=== PATIENT | male | born 1940 | race Caucasian/White ===

== ENCOUNTER 2020-04-30 06:41 | Day surgery (SDC) | payer MEDICARE, SELFPAY ==
[2020-04-04 08:19] VITALS: BMI 24.0
[2020-04-30] VITALS (7 sets, daily range): BP systolic 94–115; BP diastolic 55–73; PULSE 47–99; RESP 14–16; TEMP 36.1–36.7; O2SAT 97–100; BMI 23.1
[2020-04-30 07:16] LABS: Bedside Glucose 110 mg/dL (70-110)
[2020-04-30] MEDS: Lactated Ringers 1,000 ML 100 ML IV (07:24)
--- NOTE | 2020-04-30 07:31 | PCM.HP.BLA ---
Problem List (1) Family history of malignant neoplasm of colon in father Status: Acute (2) Personal history of colonic polyps Status: Acute History and Physical Date of Admission: 04/30/20 Intake Visit Reasons: CSCOPE Chief Complaint: discuss c-scope Construction Analyst Required: No Is patient in pain?: No Allergies aspirin Allergy (Mild, Verified 04/04/20 08:21) Unknown Medications lisinopril 5 mg tablet 5 mg PO DAILY 04/04/20 [History Confirmed 04/04/20] metformin 500 mg tablet 500 mg PO DAILY 04/04/20 [History Confirmed 04/04/20] rosuvastatin 5 mg tablet 5 mg PO DAILY 04/04/20 [History Confirmed 04/04/20] tamsulosin 0.4 mg capsule 0.4 mg PO DAILY 04/04/20 [History Confirmed 04/04/20] [facility] Medical History BPH (benign prostatic hyperplasia) (Acute) Diabetes (Acute) High cholesterol (Acute) HTN (hypertension) (Chronic) Social History (Updated 04/04/20 @ 08:[address] Shabbir Cortez MD) Smoking Status: Never smoker HPI HPI HPI: EUGENIE KNIGHT, is a 79 M who presents to the office today for surgical consultation regarding a colonoscopy. The patient is referred by Dr. Tanner Norman and a written copy my surgical consult recommendations will return to him. This is a pleasant 79-year-old [facility] gentleman. November 15, 2015 I performed a colonoscopy with multiple polypectomy for him. He had a tortuous colon. He had a total of 8 polyps at that time. Combination of tubular adenomas and hyperplastic polyps. The patient did have a follow-up colonoscopy January 12, 2017. On that examination I did not detect additional polyps. The patient does have a family history with his father having had colon cancer. He currently denies bright red blood per rectum or melena. No abdominal pain. No weight loss. He does have a chronic long-term cough. HPI HPI HPI: EUGENIE KNIGHT, is a 79 M who presents to the office today for ROS General General: No weight change, appetite, fatigue, colon cancer, breast cancer or weakness HEENT HEENT: No difficulty swallowing, eye injury, eye surgery, swollen glands or hoarseness Endo Endocrine: Yes diabetes mellitus; no thyroid disease, thyroid cancer, Hair loss, heat intolerance or cold intolerance Skin Skin: No rash or changing moles Breast Breast: No left breast lump, right breast lump, nipple discharge, breast pain, abnormal mammogram, abnormal US or breast enlargement Musc Musculoskeletal: No back problems, arthritis, rheumatoid arthritis, gout or joint pain Cardio Cardiovascular: Yes high blood pressure; no murmur, pacemaker, heart disease, atrial fibrillation, heart attack, heart stent, palpitations, shortness of breat with exertion or chest pain Psych Psychiatric: No depression, anxiety or hearing voices Resp Respiratory: No shortness of breath, No sleep apnea, Yes cough, No COPD, No asthma, No emphysema, No wheezing Gastro Gastrointestinal: No abdominal pain, No nausea or vomiting, No diarrhea, No constipation, No blood in stool, No acid reflux, No hemorrhoids, No ulcers, No gallbladder problem, No black,tarry stools Mike Hematologic: No blood thinners, No blood disorders, No bleeding, No anemia, No blood clots Neuro Neurologic: No system reviewed and no additional complaints, except as docu, No as per HPI, No abnormal walking, No abnormal hearing, No abnormal movements, No abnormal speech, No behavioral changes, No burning sensations, No confusion, No seizure-like activity, No unsteadiness, No dizziness, No localized weakness, No frequent falls, No headache(s), No lack of coordination, No loss of vision, No memory loss, No numbness, No other visual disturbances, No radiating pain, No restless legs, No sensory deficit, No fainting, No tingling, No tremor(s), No weakness, No other Exam Const General: cooperative, healthy appearing, comfortable, no acute distress Nutritional Appearance: average body habitus Orientation: alert, awake [facility] Head: normal to inspection Eyes General: appearance normal, both eyes and all related structures Chest Breast Palpation: No nipple discharge Resp Effort & Inspection: normal respiratory effort Auscultation: clear to auscultation bilaterally Cardio Rate: regular rate Rhythm: regular rhythm Heart Sounds: no murmurs GI Inspection: normal to inspection Palpation: soft, no hepatosplenomegaly Auscultation: normal bowel sounds Musc Cervical Spine: normal cervical lordosis Neuro Cognition: normal cognition Extrem General: no calf tenderness Psych Affect: normal affect Assessment & Plan Problems 1. Personal history of colonic polyps Z86.010 2. Family history of malignant neoplasm of colon in father Z80.0 Plan I recommended the patient a colonoscopy with possible biopsy or polypectomy is indicated. He is aware of the technique, benefit, risk, alternatives. He had a previous history of multiple colon polyps. He has history of a tortuous colon. He has a higher risk nature in addition secondary to family history with his father having colon cancer. He has had an opportunity to ask and have questions answered. He is aware of Covid-19 pandemic. He is aware that the [facility] is currently reporting a low local incidence. We will schedule and proceed at his discretion. Copy: Dr. Tanner Cortez M.D., F.A.C.S. Coding Level of Care Code 83303 Diagnoses Personal history of colonic polyps Z86.010 Family history of malignant neoplasm of colon in father Z80.0 I have re-examined the patient. There are no clinical changes since date of exam. Procedure Criteria Procedure Type: Elective COVID Risk Discussion: The surgeon/proceduralist and patient have discussed in detail the risk of exposure to and/or potential harm posed by the COVID-19 virus with having a surgery/procedure at this time versus the risk of delaying the surgery/procedure. It is not possible to know either the risk of delaying the surgery or procedure or chance of getting an infection with perfect accuracy, but a joint decision was made between the patient and the surgeon/proceduralist to proceed at this time with the scheduled surgery/procedure as indicated on the consent form.
--- NOTE | 2020-04-30 07:45 | COLBX_PTH ---
PATIENT: EUGENIE KNIGHT LOC: [facility] U#:[id number] AGE/SX: 79/M ROOM: RE04/30/[address]: Dr. Shabbir Cortez MD : 1940 BED: DIS: 04/30/2020 SPEC #: [id number] RECD: 04/30/20 10:28 STATUS: CELESTE TIMI #: [id number] DANIKA: 04/30/20 07:[address]: Shabbir Cortez DEPT: SURGICAL PATHOLOGY RECD BY: Jimena Parikh ENTERED: 04/30/20 12:12 SP TYPE: COLON BX OTHR DR: MD Dr. Ian Melendez MD Tissues: A - Gastric mucous membrane B - SPLENIC FLEXURE C - Descending colon Procedures: Surgery Specimen Level IV HEADER OPERATION: Colonoscopy (MAC) PRE-OP DIAGNOSIS: History colonic polyps TISSUE SUBMITTED: A - Hepatic flexure polyp, B - Splenic flexure polyp, C - Descending polyp biopsy MICROSCOPIC DIAGNOSIS A. Colonic polyp at hepatic flexure, biopsy: Tubular adenoma. Fecal debris. B. Colonic polyp at splenic flexure, biopsy: Polypoid fragment of benign colonic mucosa. See comment. C. Descending colon polyp, biopsy: Tubular adenoma. AM:willie 05/01/20 COMMENT B. Neither hyperplastic nor adenomatous change is seen. MICROSCOPIC DESCRIPTION Slides are reviewed. GROSS DESCRIPTION A - Received in fixative is one container labeled with the patient's name and designated hepatic flexure polyp. The specimen consists of multiple irregular fragments of light barlow soft tissue and fecal debris that in aggregate measure 3 x 0.6 x 0.1 cm. The specimen is totally submitted in one cassette. B - Received in fixative is one container labeled with the patient's name and designated splenic flexure polyp. The specimen consists of multiple irregular fragments of light barlow soft tissue that in aggregate measure 0.5 x 0.5 x 0.1 cm. The specimen is totally submitted in one cassette. C - Received in fixative is one container labeled with the patient's name and designated descending colon polyp. The specimen consists of one irregular fragment of light barlow soft tissue that measures 0.5 x 0.5 x 0.1 cm. The specimen is totally submitted in one cassette. / AM:willie 04/30/20 TC:5 CPT: 96567 x3
--- NOTE | 2020-04-30 08:22 | OP.COLON_ITS ---
Patient Name: Harshil Barahona Procedure Date: 04/30/2020 7:32 AM Date of : 1940 Age: 79 Procedure: Colonoscopy Indications: High risk colon cancer surveillance: Personal history of colonic polyps Providers: Shabbir Cortez MD Referring MD: Ian Norman Medicines: See the Anesthesia note for documentation of the administered medications Patient Profile: Last Colonoscopy: December 2016. Complications: No immediate complications. Procedure: Pre-Anesthesia Assessment: - Prior to the procedure, a History and Physical was performed, and patient medications and allergies were reviewed. The patient's tolerance of previous anesthesia was also reviewed. The risks and benefits of the procedure and the sedation options and risks were discussed with the patient. All questions were answered, and informed consent was obtained. Prior Anticoagulants: The patient has taken no previous anticoagulant or antiplatelet agents. ASA Grade Assessment: II - A patient with mild systemic disease. After reviewing the risks and benefits, the patient was deemed in satisfactory condition to undergo the procedure. After I obtained informed consent, the scope was passed under direct vision. Throughout the procedure, the patient's blood pressure, pulse, and oxygen saturations were monitored continuously. The colonoscope was introduced through the anus and advanced to the cecum, identified by appendiceal orifice and ileocecal valve. The colonoscopy was performed with difficulty due to a tortuous colon. Successful completion of the procedure was aided by applying abdominal pressure. The patient tolerated the procedure well. The quality of the bowel preparation was good. The ileocecal valve and the appendiceal orifice were photographed. Scope In: 7:43:49 AM Scope Withdrawal Time 0 hours 19 minutes 42 seconds Scope Out: 8:14:37 AM Total Procedure Duration Time 0 hours 30 minutes 48 seconds Findings: Hemorrhoids were found on perianal exam. The digital rectal exam was normal. Pertinent negatives include normal prostate (size, shape, and consistency). A 7 mm polyp was found in the hepatic flexure. The polyp was sessile. The polyp was removed with a hot snare. Resection and retrieval were complete. A 5 mm polyp was found in the splenic flexure. The polyp was sessile. The polyp was removed with a hot snare. Resection and retrieval were complete. A 5 mm polyp was found in the descending colon. The polyp was sessile. The polyp was removed with a cold biopsy forceps. Resection and retrieval were complete. A 3 mm polyp was found in the sigmoid colon. The polyp was sessile. The polyp was removed with a hot snare. Resection and retrieval were complete. Scattered diverticula were found in the sigmoid colon. The sigmoid colon was significantly tortuous. Impression: - Hemorrhoids found on perianal exam. - One 7 mm polyp at the hepatic flexure, removed with a hot snare. Resected and retrieved. - One 5 mm polyp at the splenic flexure, removed with a hot snare. Resected and retrieved. - One 5 mm polyp in the descending colon, removed with a cold biopsy forceps. Resected and retrieved. - One 3 mm polyp in the sigmoid colon, removed with a hot snare. Resected and vaporized, no residual specimen - Diverticulosis in the sigmoid colon. - Tortuous colon. Recommendation: - Discharge patient to home. - Resume previous diet. - Continue present medications. - Repeat colonoscopy in 3 years for surveillance based on pathology results. - Telephone my office for pathology results in 1 week. Procedure Code(s): --- Professional --- 43319, Colonoscopy, flexible; with removal of tumor(s), polyp(s), or other lesion(s) by snare technique 60631, 59, Colonoscopy, flexible; with biopsy, single or multiple Diagnosis Code(s): --- Professional --- Z86.010, Personal history of colonic polyps K64.9, Unspecified hemorrhoids D12.3, Benign neoplasm of transverse colon (hepatic flexure or splenic flexure) D12.4, Benign neoplasm of descending colon D12.5, Benign neoplasm of sigmoid colon K57.30, Diverticulosis of large intestine without perforation or abscess without bleeding Q43.8, Other specified congenital malformations of intestine CPT copyright 2017 [employer]. All rights reserved. The codes documented in this report are preliminary and upon certified medical records coder review may be revised to meet current compliance requirements. Shabbir Cortez MD 04/30/2020 8:21:19 AM This report has been signed electronically. Number of Addenda: 0 Note Initiated On: 04/30/2020 7:32 AM
--- NOTE | 2020-04-30 08:22 | OP.CCLET_ITS ---
04/30/2020 Ian Norman Md Re : Colonoscopy procedure for Harshil Barahona Dear Dr. Norman This procedure was performed on Thursday, April 30, 2020. My impressions and recommendations are as follows: Impressions : - Hemorrhoids found on perianal exam. - One 7 mm polyp at the hepatic flexure, removed with a hot snare. Resected and retrieved. - One 5 mm polyp at the splenic flexure, removed with a hot snare. Resected and retrieved. - One 5 mm polyp in the descending colon, removed with a cold biopsy forceps. Resected and retrieved. - One 3 mm polyp in the sigmoid colon, removed with a hot snare. Resected and vaporized, no residual specimen - Diverticulosis in the sigmoid colon. - Tortuous colon. Recommendations : - Discharge patient to home. - Resume previous diet. - Continue present medications. - Repeat colonoscopy in 3 years for surveillance based on pathology results. - Telephone my office for pathology results in 1 week. My findings are described in the full procedure note, which is enclosed. If I can be of further assistance, please feel free to contact me at Doctor phone number(s): Work: . Sincerely, Shabbir Cortez MD 04/30/2020 8:21:19 AM This report has been signed electronically.
== END 2020-04-30 09:00 | disposition home or self-care (01) ==
LOC: EN 06:41 → AC 06:45
PROVIDERS: Anesthesiology; PCP Family Medicine; Referring Provider Family Medicine; Visit Provider Surgery
PROC: 0DJD8ZZ Inspection of Lower Intestinal Tract, Via Natural or Artificial Opening Endoscopic (ICD-10-PCS; CPT 45378; principal; 2020-04-30 07:40)
DX: Z12.11 Encounter for screening for malignant neoplasm of colon (principal); Z87.19 Personal history of other diseases of the digestive system; K64.9 Unspecified hemorrhoids; D12.3 Benign neoplasm of transverse colon; D12.4 Benign neoplasm of descending colon; D12.5 Benign neoplasm of sigmoid colon; Q43.8 Other specified congenital malformations of intestine; Z79.84 Long term (current) use of oral hypoglycemic drugs; Z79.899 Other long term (current) drug therapy; E11.9 Type 2 diabetes mellitus without complications; I10 Essential (primary) hypertension; E78.00 Pure hypercholesterolemia, unspecified; N40.0 Benign prostatic hyperplasia without lower urinary tract symptoms; Z80.0 Family history of malignant neoplasm of digestive organs; R05 Cough
CPT/HCPCS: 45380; 45385; 82962; 87635; 88305; C9803; J7120; U0003

== ENCOUNTER 2022-01-08 09:03 | Emergency (ER) | payer MEDICARE, SELFPAY ==
[2022-01-08 09:04] VITALS: BP 170/69; PULSE 63; RESP 18; TEMP 36.6; O2SAT 97; BMI 24.3
--- NOTE | 2022-01-08 09:42 | CT_ITS ---
STUDY: CTA CHEST REASON FOR EXAM: Male, 81 years old. Questionable aortic dissection seen on the cardiac echo.. RADIATION DOSAGE (If Supplied By Facility): CTDIvol = ( 13.83 ) mGy, DLP = ( 536.52 ) mGycm TECHNIQUE: The examination was performed with the intravenous administration of IV 100mL Isovue-370. Post-processing of the angiographic images was performed, with multiplanar reformation and 3D reconstruction. Individualized dose optimization techniques were used for this CT. COMPARISON: None. FINDINGS: Normal enhancement of the main pulmonary artery and right and left pulmonary arteries. Normal enhancement of the bilateral peripheral pulmonary arteries. There is no demonstrated pulmonary embolism. There is aneurysmal dilatation of the ascending aorta. The transverse diameter of the ascending aorta measures 44.9 mm''s. There is no demonstrated aortic dissection. There are calcifications of the coronary arteries. There are visualized mediastinal lymph nodes, which are within normal size limits, and with normal morphology. Normal hilar regions. Normal visualized trachea and bronchi. The lungs are well expanded. Mild degree of increased markings at the lung bases suggestive of mild scarring. Normal pleura. Normal chest wall structures. There are degenerative changes of thoracic spine. There is a 1.5 cm x 1.7 cm cyst in the left lobe of the liver. 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 No evidence of dissection. Electronically Signed: Rajendra Navarrete MD at 11:36 EDT ,
--- NOTE | 2022-01-08 09:42 | EKG12_ITS ---
Test Reason : CHEST OTHER Blood Pressure : / mmHG Vent. Rate : 052 BPM Atrial Rate : 052 BPM P-R Int : 166 ms QRS Dur : 112 ms QT Int : 446 ms P-R-T Axes : 067 022 -22 degrees QTc Int : 414 ms Sinus bradycardia Nonspecific ST abnormality Septal FL, age undetermined, cannot be excluded Abnormal ECG Confirmed by YANN COLON, ARISTIDES ([id number]), editor department ELISA GUILLEN ([id number]) on 01/12/2022 7:23:33 AM Referred By: LUIS Confirmed By:ARISTIDES LERNER MD
--- NOTE | 2022-01-08 09:44 | EX.ED.DYSGE1 ---
HPI History of Present Illness Chief Complaint: Chest Other Informant: patient Narrative Narrative: Asymptomatic patient who had a routine stress test that was abnormal, he had an echocardiogram this morning as a follow-up to this, the centrifugal chiller technician called PCP concerned that it shows a 5.4 cm aneurysm in the thoracic aorta with findings consistent with a dissection. Therefore he was sent to the emergency department for further evaluation. Patient has had no chest discomfort, shortness of breath, syncope, or recent illness and he states he feels fine right now, he is just here because of some abnormal test. [facility] Medical History Arthritis BPH (benign prostatic hyperplasia) Diabetes Dietary restriction Family history of malignant neoplasm of colon in father High cholesterol History of echocardiogram History of irregular heartbeat History of stress test HTN (hypertension) Leg cramps Non-smoker Personal history of colonic polyps Shortness of breath on exertion Syncope Wears glasses Wears hearing aid Home Medications metformin 500 mg tablet 500 mg PO BID 04/04/20 [History Last Taken Unknown] rosuvastatin 5 mg tablet 5 mg PO DAILY 04/04/20 [History Last Taken Unknown] omega-3 fatty acids-fish oil 1 ea PO DAILY 04/23/20 [History Last Taken Unknown] vitamin B complex 1 ea PO DAILY 04/23/20 [History Last Taken Unknown] cholecalciferol (vitamin D3) 25 mcg (1,000 unit) tablet 2,000 unit PO DAILY tab 06/19/21 [History Last Taken Unknown] losartan 25 mg tablet 25 mg PO DAILY 06/19/21 [History Last Taken Unknown] tamsulosin 0.4 mg capsule 0.4 mg PO QHS 06/19/21 [History Last Taken Unknown] Allergy/AdvReac Type Severity Reaction Status Date / Time aspirin Allergy Mild Unknown Verified 01/08/22 09:06 pravastatin Allergy angioedema Verified 01/08/22 09:06 atorvastatin [From Lipitor] AdvReac mental Verified 01/08/22 09:06 status change lovastatin AdvReac muscle Verified 01/08/22 09:06 aches Family History (Updated 06/19/21 @ 08:41 by Tamanna Wednesday) Father Colon cancer Brother Diabetes Sister Diabetes Surgical History Hx of colonoscopy with polypectomy Hx of detached retina repair Hx of inguinal hernia repair Hx of thumb surgery Hx of tonsillectomy Social History Smoking Status: Never smoker alcohol intake: never substance use type: does not use ROS ROS ED Constitutional Constitutional ED: Denies chills or fever(s) Eyes Eyes: Denies change in vision or diplopia ENT ENT ED: Denies rhinorrhea or sore throat Cardiovascular Cardiovascular: Denies chest pain or palpitations Respiratory/Chest Respiratory/Chest: Denies cough or dyspnea Gastrointestinal Gastrointestinal: Denies abdominal pain, diarrhea, nausea or vomiting Genitourinary Genitourinary ED: Denies dysuria or hematuria Musculoskeletal Musculoskeletal: Denies back pain or neck pain Integumentary Denies abscess or rash Neurologic Neurologic: Denies headache(s), paresthesias or weakness Psychiatric Psychiatric: Denies anxiety or suicidal thoughts EXAM Physical Exam Const Vital Signs: 01/08/22 09:04 01/08/22 09:59 01/08/22 10:00 Temperature 98 F Temperature Source Temporal Pulse Rate 63 Respiratory Rate 18 Respiratory Effort Normal Non-Labored Respiratory Pattern Normal Blood Pressure 170/69 H Blood Pressure Mean 102 Pulse Ox 97 99 Oxygen Delivery Method Room Air Room Air Positive well nourished and well developed General Appearance ED: well developed and NAD HEENT Reports moist mucous membranes normocephalic and atraumatic Eyes PERRL and EOMs intact bilaterally Neck full ROM and supple Resp normal respiratory effort and clear to auscultation bilaterally Cardio regular rate, regular rhythm and no murmurs GI non-tender and non-distended Auscultation: normoactive bowel sounds Palpation: soft Back/Spine no CVA tenderness General Back: other FROM Extremity normal to inspection General Extremety ED: Negative for edema, pulses abnormal or tenderness General Extremity: Negative for edema or pulses abnormal Neuro oriented x3, CN's II-XII intact bilaterally and no sensory deficits noted Sensorium / Orientation: awake and alert Motor Exam: strength 5/5 throughout Skin no rashes or lesions noted and no wounds MDM MDM MDM Narrative Medical decision making narrative: CT angiography of the chest was performed in this patient, initially the techs performed the wrong CT study, imaging the pulmonary vasculature rather than the aorta, but this was remedied with another bolus but smaller amount of volume. The aorta was adequately contrasted, and according to radiology it is normal except for the 5.4 cm aneurysm, it shows no aortic dissection. The CT has a higher sensitivity than the ultrasound as I discovered from research and discussing with Dr. Leahy with cardiology. Other resources available to me show that he is less than 5.5 cm therefore does not need to be referred emergently for surgical intervention, and repeat CT or echocardiogram is recommended every 6 months for monitoring. Discussed with Dr. Garduno he was on for Dr. Norman as well as the patient who can be discharged. Lab Data Attestation: I reviewed the patient's lab results. Labs: Laboratory Results - last 24 hr 01/08/22 01/08/22 09:58 09:58 WBC 6.7 RBC 3.97 L Hgb 12.3 L Hct 37.1 L MCV 93.5 MCH 31.0 MCHC 33.2 RDW Std Deviation 45.4 H RDW Coeff of Michael 13.3 Plt Count 144 L MPV 10.0 Neut % (Auto) Not Reportable Absolute Neuts (auto) 3.1 Absolute Lymphs (auto) 2.30 Total Counted 100 Neutrophils % (Manual) 46 L Lymphocytes % (Manual) 34 Monocytes % (Manual) 16 H Eosinophils % (Manual) 1 Metamyelocytes % 3 H Diff Path Review May foll Platelet Estimate SLT DEC RBC Morphology NORM C+C Sodium 139 Potassium 3.8 Chloride 105 Carbon Dioxide 29.0 Anion Gap 5 BUN 20 H Creatinine 1.06 Estim Creat Clear Calc 56.43 Est GFR (MDRD) Af Amer 86 Est GFR (MDRD) Non-Af 71 BUN/Creatinine Ratio 18.9 Glucose 83 Calcium 9.6 Troponin I High Sens 7 Radiography Diagnostic Testing: Clinical Impression(s) from Imaging Studies Chest CTA 01/08/22 09:42 IMPRESSION: 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 No evidence of dissection. Electronically Signed: Rajendra Navarrete MD at 11:36 EDT , EKG Initial EKG: Attestation: I personally reviewed and interpreted this EKG as follows: Interpretation: Sinus Rhythm and No Acute Injury Pattern Comments: Normal EKG Discharge Plan Triage Chief Complaint: Chest Other Other Complaint: Abn Labs ED Provider: Osito Venegas Dx/Rx/DC Orders Clinical Impression: Aneurysm of ascending aorta, Abnormal echocardiogram Instructions: ED Aneurysm Abd Aortic Stable Prescriptions: No Action metformin 500 mg tablet 500 mg PO BID RF: 0 rosuvastatin 5 mg tablet 5 mg PO DAILY RF: 0 tamsulosin 0.4 mg capsule 0.4 mg PO QHS RF: 0 losartan 25 mg tablet 25 mg PO DAILY RF: 0 vitamin B complex 1 EACH capsule 1 ea PO DAILY RF: 0 omega-3 fatty acids-fish oil 1 EACH capsule 1 ea PO DAILY RF: 0 cholecalciferol (vitamin D3) 25 mcg (1,000 unit) tablet 2,000 unit PO DAILY RF: 0 Primary Care Provider: Ian Norman Referrals: Ian Norman MD [Primary Care Provider] - (Call for follow-up appointment, repeat imaging for your thoracic aortic aneurysm is recommended every 6 months) Disposition Disposition: Home, Self Care
[2022-01-08 09:59] VITALS: O2SAT 99
[2022-01-08] MEDS: 0.9% Normal Saline 1,000 ML 1000 ML IV (10:07)
[2022-01-08 10:15] LABS: Hematocrit 37.1 % (40-54); Hemoglobin 12.3 g/dL (13.0-16.5); Mean Corp Hgb Conc 33.2 g/dL (32-36); Mean Corpuscular Volume 93.5 fL (80-94); POSITIVE COUNT YES; POSITIVE DIFFERENTIAL YES; POSITIVE MORPHOLOGY YES; Platelet Count 144 K/mm3 (150-450); RBC Distribution Width CV 13.3 % (11.6-14.6); RBC Distribution Width SD 45.4 fl (35.1-43.9); Red Blood Count 3.97 M/mm3 (4.6-6.2); White Blood Count 6.7 K/mm3 (4.4-11.0)
[2022-01-08 10:19] LABS: Differential Indicated MANUAL DIFF
[2022-01-08 10:23] LABS: Anion Gap 5 (5-15); BUN 20 mg/dL (7-18); BUN/Creat Ratio 18.9 RATIO (10-20); Calcium,Total 9.6 mg/dL (8.5-10.1); Chloride 105 mmol/L (98-107); Creatinine, Serum 1.06 mg/dL (0.70-1.30); EST Glomerular Filtration Rate 71 mL/min (>60); Est Glom Filt Rate - Afr Amer 86 mL/min (>60); Estimated Creatinine Clearance 56.43 ml/min; Glucose 83 mg/dL (74-106); Potassium 3.8 mmol/L (3.5-5.1); Sodium Level 139 mmol/L (136-145); Troponin-I HS (w/2H Reflex) 7 pg/mL (3.0-78.0)
[2022-01-08 10:49] LABS: Eosinophil 1 % (0-5); Lymphocyte 34 % (19-41); Metamyelocyte 3 % (0-1); Monocyte 16 % (0-10); Neutrophil-Segmented 46 % (47-70); Platelet Estimate SLT DEC (ADEQ); Red Cell Morphology NORM C+C NORMAL (NORM C&C); Total Cells Counted 100 (MANUAL DIFF)
[2022-01-08 10:51] LABS: Absolute Neutrophil Count 3.1 X10^3/uL (2.0-7.7)
[2022-01-08 13:37] VITALS: PULSE 56; RESP 18; O2SAT 99
[2022-01-09 12:29] LABS: Pathologist Review Reviewed
== END 2022-01-08 13:40 | disposition home or self-care (01) ==
PROVIDERS: Emergency Provider Emergency Medicine; PCP Family Medicine; Visit Provider Emergency Medicine
DX: I71.2 Thoracic aortic aneurysm, without rupture (principal); E11.9 Type 2 diabetes mellitus without complications; R94.31 Abnormal electrocardiogram [ECG] [EKG]; I10 Essential (primary) hypertension; E78.00 Pure hypercholesterolemia, unspecified; M19.90 Unspecified osteoarthritis, unspecified site; Z79.84 Long term (current) use of oral hypoglycemic drugs; Z79.899 Other long term (current) drug therapy
CPT/HCPCS: 71275; 80048; 84484; 85025; 93005; 96360; 96361; 99284; J7030; Q9967; A4216

== ENCOUNTER 2022-03-10 07:54 | Day surgery (SDC) | payer MEDICARE, SELFPAY ==
[2022-03-10] VITALS (7 sets, daily range): BP systolic 99–143; BP diastolic 64–71; PULSE 52–80; RESP 16; TEMP 36.4–36.7; O2SAT 97–100; BMI 23.8
--- NOTE | 2022-03-10 | EGD_PTH ---
[id number] LOC: EN U#:[id number] AGE/SX: 81/M ROOM: RE03/10/[address]: Dr. Shabbir Cortez MD : 1940 BED: DIS: 03/10/2022 SPEC #: [id number] RECD: 03/10/22 13:06 STATUS: CELESTE CAPELLAN #: [id number] DANIKA: 03/10/22 00:[address]: Shabbir Cortez DEPT: SURGICAL PATHOLOGY RECD BY: Isaac Kaur ENTERED: 03/10/22 13:07 SP TYPE: EGD BIOPSY OT DR: Dr. Ian Norman MD Tissues: A - Duodenum, NOS B - Duodenum, NOS C - Gastric mucous membrane D - Esophageal mucous membrane E - Sigmoid colon biopsy Procedures: Special Stain Group II Surgery Specimen Level IV Alcian Blue/PAS (control) HEADER OPERATION: Colonoscopy, EGD (MAC), biopsy PRE-OP DIAGNOSIS: Heme-positive stool TISSUE SUBMITTED: A - Duodenal polyp biopsy, B - Duodenal bulb biopsy, C - Antrum biopsy for histo and H. pylori, D - Distal esophagus biopsy, E - Distal sigmoid polyp biopsy MICROSCOPIC DIAGNOSIS A. 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 B. Duodenal bulb, biopsy: Mild nonspecific chronic inflammation. C. Gastric antrum, biopsy: Mild chronic gastritis. See comment. D. Distal esophagus, biopsy: Fragments of squamous mucosa with focal changes of reflux. No evidence of goblet cell metaplasia. See comment. E. Distal sigmoid colon polyp, biopsy: Hyperplastic polyp. AM:willie 03/11/2022 COMMENT C. The results of immunohistochemistry for Helicobacter pylori will be reported separately ([id number]). D. Alcian blue/PAS stain with matched control supports the above diagnosis. MICROSCOPIC DESCRIPTION Slides are reviewed. GROSS DESCRIPTION A - Received in fixative is one container labeled with the patient's name and designated duodenal polyp biopsy. The specimen consists of one irregular fragment of light barlow soft tissue that measures 0.4 x 0.4 x 0.1 cm. The specimen is totally submitted in one cassette. B - Received in fixative is one container labeled with the patient's name and designated duodenal bulb biopsy. The specimen consists of one irregular fragment of light barlow soft tissue that measures 0.6 x 0.3 x 0.1 cm. The specimen is totally submitted in one cassette. C - Received in fixative is one container labeled with the patient's name and designated antrum biopsy. The specimen consists of one irregular fragment of light barlow soft tissue that measures 0.3 x 0.3 x 0.1 cm. The specimen is totally submitted in one cassette. D - Received in fixative is one container labeled with the patient's name and designated distal esophagus biopsy. The specimen consists of one irregular fragment of light barlow soft tissue that measures 0.8 x 0.2 x 0.1 cm. The specimen is totally submitted in one cassette. E - Received in fixative is one container labeled with the patient's name and designated distal sigmoid polyp biopsy. The specimen consists of one irregular fragment of light barlow soft tissue that measures 0.3 x 0.3 x 0.1 cm. The specimen is totally submitted in one cassette. / SJ:rg 03/10/2022 TC:3 CPT: 02570 x5, 34295
--- NOTE | 2022-03-10 08:17 | HP.PCM_ITS ---
History and Physical Date of Admission: 03/10/22 Chief Complaint: discuss c-scope Allergies aspirin Allergy (Mild, Verified 01/08/22 09:06) Unknownpravastatin Allergy (Verified 01/08/22 09:06) angioedemaatorvastatin [From Lipitor] Adverse Reaction (Verified 01/08/22 09:06) mental status changelovastatin Adverse Reaction (Verified 01/08/22 09:06) muscle aches Medications metformin 500 mg tablet 500 mg PO BID 04/04/20 [History Confirmed 01/08/22] rosuvastatin 5 mg tablet 5 mg PO DAILY 04/04/20 [History Confirmed 01/08/22] omega-3 fatty acids-fish oil 300 mg-1,000 mg capsule 1 ea PO DAILY 04/23/20 [History Confirmed 01/08/22] vitamin B complex 1 ea PO DAILY 04/23/20 [History Confirmed 01/08/22] cholecalciferol (vitamin D3) 25 mcg (1,000 unit) tablet 2,000 unit PO DAILY 06/19/21 [History Confirmed 01/08/22] tamsulosin 0.4 mg capsule 0.4 mg PO QHS 06/19/21 [History Confirmed 01/08/22] losartan 25 mg tablet 50 mg PO DAILY 02/10/22 [History Confirmed 02/10/22] PFSH Medical History? Arthritis BPH (benign prostatic hyperplasia) Diabetes Dietary restriction Family history of malignant neoplasm of colon in father High cholesterol History of echocardiogram History of irregular heartbeat History of stress test HTN (hypertension) Leg cramps Non-smoker Personal history of colonic polyps Shortness of breath on exertion Syncope Wears glasses Wears hearing aid Surgical History? Hx of colonoscopy with polypectomy Hx of detached retina repair Hx of inguinal hernia repair Hx of thumb surgery Hx of tonsillectomy Family History? Father Colon cancerBrother DiabetesSister Diabetes Social History? Smoking Status:? Never smoker alcohol intake:? never substance use type:? does not use HPI HPI Surgical H&P: Yes HPI: EUGENIE KNIGHT, is a 81 M who presents to the office today for an update history and physical for an upcoming upper and lower scope. Patient was evaluated by Dr. Cortez late last year for heme-positive stools. He was scheduled for July and developed COVID and had to cancel. He was rescheduled for November 2021 and developed heart palpitations. He had to cancel. Patient has since had a cardiac work-up by Dr. Virgen and has been cleared by his PCP and tail ripper to proceed per patient. He states his tail ripper has increased his losartan. Patient denies recent chest pain, shortness of breath, or palpitations within the last month. Patient denies any recent bowel habit changes. He notes his father had colon cancer. His last colonoscopy was performed in [address] Cortez. He denies having a previous EGD. ? Patient's previous history per Dr. Cortez: EUGENIE KNIGHT, is a 80 M who presents to the office today for surgical consultation regarding a positive stool card.? The patient is referred by Dr. Tanner Norman and a written copy of my surgical consult recommendations will return to him.? The patient has a previous history of colon polyps.? His most recent colonoscopy was performed by myself on April 30, 2020.? I detected for polyps at that time as well as sigmoid diverticulosis and significant tortuosity of the colon.? Recommendations were for follow-up colonoscopy at 3 years.? Pathology was consistent with tubular adenoma and fragment of normal mucosa.? His most recent colonoscopy prior that was November 15, 2015 where he was detected is having a total of 8 polyps. He has not had an upper endoscopy.? Occasionally he has noted some darker stools.? He has no history of peptic ulcer disease.? Is not on anticoagulants.? He is diabetic.? He has never had an upper endoscopy. His father did have colon cancer. He doesn't think that he is experience COVID-19.? He has not been vaccinated. I now have information from [facility].? Stool was occult blood positive on June 02, 2021.? Vitamin B12 755 and folate 19.4 and iron 79 with a TIBC 296 and a transferrin saturation of 27 all normal.? Ferritin 190 normal.? As of May 24, 2021 total protein was 7.7 with an albumin of 4.2.? Liver function tests were normal.? Potassium was 4.5.? BUN 17 and creatinine 1.02.? White blood cell count was 7 with a hemoglobin of 12.3 and hematocrit 39.3 and platelet count of 155,000.? Hemoglobin A1c was 6.1.? Total cholesterol 156 with triglycerides 102.? HDL 48 with LDL of 88 ROS General General: No weight change, appetite, fatigue, colon cancer, breast cancer or weakness HEENT HEENT: No difficulty swallowing, eye injury, eye surgery, swollen glands or hoarseness Endo Endocrine: Yes diabetes mellitus; No thyroid disease, thyroid cancer, Hair loss, heat intolerance or cold intolerance Skin Skin: No rash or changing moles Musc Musculoskeletal: Yes arthritis; No back problems, rheumatoid arthritis, gout or joint pain Cardio Cardiovascular: No murmur, pacemaker, heart disease, atrial fibrillation, high blood pressure, heart attack, heart stent, palpitations, shortness of breat with exertion or chest pain Psych Psychiatric: No depression, anxiety or hearing voices Resp Respiratory: No shortness of breath, No sleep apnea, No cough, No COPD, No asthma, No emphysema and No wheezing Gastro Gastrointestinal: No abdominal pain, No nausea or vomiting, No diarrhea, Yes constipation, No blood in stool, No acid reflux, No hemorrhoids, No ulcers, No gallbladder problem and Yes black,tarry stools Additional Details: Pt states has occasional constipation. Also notes occasional dark stool but denies bright blood. Mike Hematologic: No blood thinners, No blood disorders, No bleeding, No anemia and No blood clots Neuro Neurologic: No system reviewed and no additional complaints, except as documented, No as per HPI, No abnormal gait, No abnormal hearing, No abnormal movements, No abnormal speech, No behavioral changes, No burning sensations, No confusion, No convulsions, No disequilibrium, No dizziness, No localized weakness, No frequent falls, No headache(s), No lack of coordination, No loss of vision, No memory loss, No numbness, No other visual disturbances, No radicular pain, No restless legs, No sensory deficit, No syncope, No tingling, No tremor(s), No weakness and No other Exam Const General: cooperative, healthy appearing, comfortable and no acute distress [facility] Head: normal to inspection Eyes General: appearance normal, both eyes and all related structures Neck Neck: normal visual inspection Neck mass: No Resp Effort & Inspection: normal respiratory effort Auscultation: clear to auscultation bilaterally Cardio Rate: regular rate Rhythm: regular rhythm GI Inspection: normal to inspection Palpation: soft Auscultation: normal bowel sounds Skin General: no rashes or lesions noted Neuro General: no focal motor deficits and CN's II-XI intact bilaterally Extrem General: normal to inspection Psych Appearance: grossly normal Affect: normal affect Assessment and Plan Assessment and Plan (1) Heme positive stool: ?Status:?Acute ?Plan: Dr. Cortez will plan to perform a esophagogastroduodenoscopy with possible biopsy and a colonoscopy with possible biopsy or polypectomy. Procedure details, risks and benefits have been reviewed. Plan to have patient use Miralax prep. Patient will hold his fish oil for 7 days prior to the procedure. Patient has had the opportunity to ask and have questions answered. Patient verbally understands and agrees with the plan. Will plan to obtain clearance from PCP from a cardiac perspective.? (2) Family history of malignant neoplasm of colon in father: I have re-examined the patient. There are no clinical changes since date of exam. Shabbir Cortez M.D., F.A.C.S.
--- NOTE | 2022-03-10 09:00 | IMM_PTH ---
PATIENT: EUGENIE KNIGHT LOC: [facility] U#:[id number] AGE/SX: 81/M ROOM: RE03/10/[address]: Dr. Shabbir Cortez MD : 1940 BED: DIS: 03/10/2022 SPEC #: [id number] RECD: 03/10/22 14:14 STATUS: CELESTE REFabricio #: [id number] DANIKA: 03/10/22 09:[address]: Shabbir Cortez DEPT: IMMUNOHISTOCHEMISTRY RECD BY: Samira Fitch ENTERED: 03/10/22 14:15 SP TYPE: IMMUNO OTHR DR: Dr. Ian Norman MD Tissues: C - Stomach, NOS Procedures: H Pylori (initial) PHYSICIAN & INSTITUTION [place] [id number] SPECIMEN INFORMATION: Tissue Source: C ? Antrum biopsy Clinical Info: Heme-positive stool Specimen Number: [id number] Maria Teresa CPT code: 48258 METHODOLOGY: Deparaffinized sections of prefer/formalin-fixed tissue or PAP/DQ stained slides are incubated with monoclonal/polyclonal antibodies/oligonucleotide probes. Localization is made via biotin free immunoperoxidase method. Appropriate controls are performed and reacted as expected. Results on target cell population are indicated in the following table: RESULTS: ANTIBODY / CLONE RESULT Block C H Pylori (polyclonal) negative These tests were developed and their performance characteristics determined by [facility]. They may not have been cleared or approved by the U.S. Food and Drug Administration. The FDA has determined that such clearance or approval is not necessary. The above immunohistochemical/dualISH markers are ordered and reviewed by the Pathologist. INTERPRETATION: C. Antrum, biopsy: Negative for Helicobacter pylori organisms. AM:willie 03/11/2022
[2022-03-10 09:36] LABS: Bedside Glucose 130 mg/dL (74-106)
--- NOTE | 2022-03-10 09:39 | OP.CCLET_ITS ---
03/10/2022 Ian Norman Md Re : Upper GI endoscopy procedure for Harshil Barahona Dear Dr. Norman This procedure was performed on Thursday, March 10, 2022. My impressions and recommendations are as follows: Impressions : - Reflux esophagitis. Biopsied. - Erythematous mucosa in the antrum. Biopsied. - A single duodenal polyp. Resected and retrieved. - Erythematous duodenopathy. Biopsied. Recommendations : - Discharge patient to home. - Resume previous diet. - Continue present medications. - Telephone my office for pathology results in 1 week. My findings are described in the full procedure note, which is enclosed. If I can be of further assistance, please feel free to contact me at Doctor phone number(s): Work: . Sincerely, Shabbir Cortez MD 03/10/2022 9:39:22 AM This report has been signed electronically.
--- NOTE | 2022-03-10 09:39 | OP.EGD_ITS ---
Patient Name: Harshil Barahona Procedure Date: 03/10/2022 8:48 AM Date of : 1940 Age: 81 Procedure: Upper GI endoscopy Indications: Hemocult positive stool Providers: Shabbir Cortez MD Medicines: See the Anesthesia note for documentation of the administered medications Complications: No immediate complications. Procedure: Pre-Anesthesia Assessment: - Prior to the procedure, a History and Physical was performed, and patient medications and allergies were reviewed. The patient's tolerance of previous anesthesia was also reviewed. The risks and benefits of the procedure and the sedation options and risks were discussed with the patient. All questions were answered, and informed consent was obtained. Prior Anticoagulants: The patient has taken no previous anticoagulant or antiplatelet agents. ASA Grade Assessment: II - A patient with mild systemic disease. After reviewing the risks and benefits, the patient was deemed in satisfactory condition to undergo the procedure. After obtaining informed consent, the endoscope was passed under direct vision. Throughout the procedure, the patient's blood pressure, pulse, and oxygen saturations were monitored continuously. The pediatric colonoscope was introduced through the mouth, and advanced to the second part of duodenum. The upper GI endoscopy was accomplished without difficulty. The patient tolerated the procedure well. Scope In: 9:06:17 AM Scope Out: 9:13:28 AM Total Procedure Duration Time 0 hours 7 minutes 11 seconds Findings: Esophagitis with no bleeding was found 40 cm from the incisors. Biopsies were taken with a cold forceps for histology. Diffuse mildly erythematous mucosa without bleeding was found in the gastric antrum. Biopsies were taken with a cold forceps for histology. A single 4 mm sessile polyp with no bleeding was found in the second portion of the duodenum. The polyp was removed with a cold biopsy forceps. Resection and retrieval were complete. Diffuse mildly erythematous mucosa without active bleeding and with no stigmata of bleeding was found in the duodenal bulb. Biopsies were taken with a cold forceps for histology. Impression: - Reflux esophagitis. Biopsied. - Erythematous mucosa in the antrum. Biopsied. - A single duodenal polyp. Resected and retrieved. - Erythematous duodenopathy. Biopsied. Recommendation: - Discharge patient to home. - Resume previous diet. - Continue present medications. - Telephone my office for pathology results in 1 week. Procedure Code(s): --- Professional --- 91720, Esophagogastroduodenoscopy, flexible, transoral; with biopsy, single or multiple Diagnosis Code(s): --- Professional --- K21.0, Gastro-esophageal reflux disease with esophagitis K31.89, Other diseases of stomach and duodenum K31.7, Polyp of stomach and duodenum CPT copyright 2017 [employer]. All rights reserved. The codes documented in this report are preliminary and upon ecosystem ecology professor review may be revised to meet current compliance requirements. Shabbir Cortez MD 03/10/2022 9:39:22 AM This report has been signed electronically. Number of Addenda: 0 Note Initiated On: 03/10/2022 8:48 AM
--- NOTE | 2022-03-10 09:44 | OP.COLON_ITS ---
Patient Name: Harshil Barahona Procedure Date: 03/10/2022 9:13 AM Date of : 1940 Age: 81 Procedure: Colonoscopy Indications: Hemocult positive stool Providers: Shabbir Cortez MD Patient Profile: Last Colonoscopy: within the past 3 years. Complications: No immediate complications. Procedure: Pre-Anesthesia Assessment: - Prior to the procedure, a History and Physical was performed, and patient medications and allergies were reviewed. The patient's tolerance of previous anesthesia was also reviewed. The risks and benefits of the procedure and the sedation options and risks were discussed with the patient. All questions were answered, and informed consent was obtained. Prior Anticoagulants: The patient has taken no previous anticoagulant or antiplatelet agents. ASA Grade Assessment: II - A patient with mild systemic disease. After reviewing the risks and benefits, the patient was deemed in satisfactory condition to undergo the procedure. After I obtained informed consent, the scope was passed under direct vision. Throughout the procedure, the patient's blood pressure, pulse, and oxygen saturations were monitored continuously. The pediatric colonoscope was introduced through the anus and advanced to the cecum, identified by appendiceal orifice and ileocecal valve. The colonoscopy was performed without difficulty. The patient tolerated the procedure well. The quality of the bowel preparation was adequate to identify polyps. The ileocecal valve was photographed. Scope In: 9:15:19 AM Scope Withdrawal Time 0 hours 8 minutes 58 seconds Scope Out: 9:31:08 AM Total Procedure Duration Time 0 hours 15 minutes 49 seconds Findings: The digital rectal exam findings include non-thrombosed internal hemorrhoids and internal hemorrhoids that prolapse with straining, but require manual replacement into the anal canal (Grade III). Pertinent negatives include normal prostate (size, shape, and consistency). A 3 mm polyp was found in the distal sigmoid colon. The polyp was sessile. The polyp was removed with a cold biopsy forceps. Resection and retrieval were complete. Multiple diverticula were found in the sigmoid colon. Impression: - Non-thrombosed internal hemorrhoids and internal hemorrhoids that prolapse with straining, but require manual replacement into the anal canal (Grade III) found on digital rectal exam. - One 3 mm polyp in the distal sigmoid colon, removed with a cold biopsy forceps. Resected and retrieved. - Diverticulosis in the sigmoid colon. Recommendation: - Discharge patient to home. - Resume previous diet. - Continue present medications. - Repeat colonoscopy in 5 years for surveillance. - Telephone my office for pathology results in 1 week. I suspect hemorrhoids as the likely source of Hemoccult positive stool. No active bleeding was identified at the time of this combined upper and lower endoscopy. Procedure Code(s): --- Professional --- 44872, Colonoscopy, flexible; with biopsy, single or multiple Diagnosis Code(s): --- Professional --- K64.2, Third degree hemorrhoids D12.5, Benign neoplasm of sigmoid colon K57.30, Diverticulosis of large intestine without perforation or abscess without bleeding CPT copyright 2017 [employer]. All rights reserved. The codes documented in this report are preliminary and upon farm operations technical director review may be revised to meet current compliance requirements. Shabbir Cortez MD 03/10/2022 9:43:36 AM This report has been signed electronically. Number of Addenda: 0 Note Initiated On: 03/10/2022 9:13 AM
--- NOTE | 2022-03-10 09:44 | OP.CCLET_ITS ---
03/10/2022 Ian Norman Md Re : Colonoscopy procedure for Harshil Barahona Dear Dr. Norman This procedure was performed on Thursday, March 10, 2022. My impressions and recommendations are as follows: Impressions : - Non-thrombosed internal hemorrhoids and internal hemorrhoids that prolapse with straining, but require manual replacement into the anal canal (Grade III) found on digital rectal exam. - One 3 mm polyp in the distal sigmoid colon, removed with a cold biopsy forceps. Resected and retrieved. - Diverticulosis in the sigmoid colon. Recommendations : - Discharge patient to home. - Resume previous diet. - Continue present medications. - Repeat colonoscopy in 5 years for surveillance. - Telephone my office for pathology results in 1 week. I suspect hemorrhoids as the likely source of Hemoccult positive stool. No active bleeding was identified at the time of this combined upper and lower endoscopy. My findings are described in the full procedure note, which is enclosed. If I can be of further assistance, please feel free to contact me at Doctor phone number(s): Work: . Sincerely, Shabbir Cortez MD 03/10/2022 9:43:36 AM This report has been signed electronically.
[2022-03-10 10:09] LABS: Hematocrit 32.7 % (40-54); Hemoglobin 10.8 g/dL (13.0-16.5); Mean Corpuscular Hgb 30.9 pg (27.0-32.0); Mean Corpuscular Volume 93.4 fL (80-94); Mean Platelet Vol. 10.4 fl (6.2-12.0); Platelet Count 112 K/mm3 (150-450); RBC Distribution Width CV 13.7 % (11.6-14.6); RBC Distribution Width SD 46.4 fl (35.1-43.9); White Blood Count 5.4 K/mm3 (4.4-11.0)
[2022-03-10 12:44] LABS: Ferritin 182 ng/mL (26-388); Iron 40 ug/dL (65-175); Iron Binding Capacity,Total 287 ug/dL (250-450); PERCENT IRON SATURATION 13.9 % (15.0-55.0)
== END 2022-03-10 11:18 | disposition home or self-care (01) ==
LOC: EN 07:55 → AC 07:59
PROVIDERS: PCP Family Medicine; Referring Provider Family Medicine; Visit Provider Surgery
PROC: 0DJD8ZZ Inspection of Lower Intestinal Tract, Via Natural or Artificial Opening Endoscopic (ICD-10-PCS; CPT 45378; principal; 2022-03-10 08:55)
DX: D12.5 Benign neoplasm of sigmoid colon (principal); E11.9 Type 2 diabetes mellitus without complications; K64.2 Third degree hemorrhoids; K57.30 Diverticulosis of large intestine without perforation or abscess without bleeding; K21.00 Gastro-esophageal reflux disease with esophagitis, without bleeding; K31.7 Polyp of stomach and duodenum; K29.50 Unspecified chronic gastritis without bleeding; R19.5 Other fecal abnormalities; I10 Essential (primary) hypertension; E78.00 Pure hypercholesterolemia, unspecified; M19.90 Unspecified osteoarthritis, unspecified site; Z79.84 Long term (current) use of oral hypoglycemic drugs; Z79.899 Other long term (current) drug therapy; Z86.010 Personal history of colon polyps; Z86.16 Personal history of COVID-19; Z80.0 Family history of malignant neoplasm of digestive organs
CPT/HCPCS: 45380; 43239; 36415; 82728; 82962; 83540; 83550; 85027; 88305; 88313; 88342; J7120; J2405

== ENCOUNTER → 2022-03-13 | Outpatient (CLI) | payer MEDICARE, SELFPAY ==
--- NOTE | 2022-03-13 08:50 | RAD_ITS ---
INDICATION: HEME POSITIVE STOOL EXAMINATION/TECHNIQUE: Barium oral contrast was administered orally via mouth to the patient. Total Fluoroscopic Time: 27 seconds AND number of Fluoroscopic Images: 8 COMPARISON: None. FINDINGS: No masses or strictures are identified. The mucosal pattern is unremarkable. There is normal motility. Oral contrast reaches the cecum within 60 minutes. RAD/Small Bowel Series Only IMPRESSION: Negative. Electronically Signed: Kurt Dejesus, at 11:16 EDT ,
== END | disposition home or self-care (01) ==
LOC: RAD 08:42
PROVIDERS: PCP Family Medicine; Referring Provider Surgery; Visit Provider Surgery
DX: R19.5 Other fecal abnormalities (principal)
CPT/HCPCS: 74250

== ENCOUNTER → 2022-04-10 | Outpatient (CLI) | payer MEDICARE, SELFPAY ==
[2022-04-10 08:47] LABS: Hematocrit 34.7 % (40-54); Hemoglobin 11.3 g/dL (13.0-16.5); Mean Corp Hgb Conc 32.6 g/dL (32-36); Mean Corpuscular Hgb 30.9 pg (27.0-32.0); Mean Corpuscular Volume 94.8 fL (80-94); Mean Platelet Vol. 10.3 fl (6.2-12.0); POSITIVE COUNT YES; POSITIVE DIFFERENTIAL YES; POSITIVE MORPHOLOGY YES; Platelet Count 126 K/mm3 (150-450); RBC Distribution Width CV 14.6 % (11.6-14.6); RBC Distribution Width SD 50.2 fl (35.1-43.9); Red Blood Count 3.66 M/mm3 (4.6-6.2); White Blood Count 7.5 K/mm3 (4.4-11.0)
[2022-04-10 08:50] LABS: Differential Indicated MANUAL DIFF
[2022-04-10 09:11] LABS: Eosinophil 2 % (0-5); Lymphocyte 35 % (19-41); Monocyte 15 % (0-10); Neutrophil-Band 1 % (0-5); Neutrophil-Segmented 47 % (47-70); Total Cells Counted 100 (MANUAL DIFF)
[2022-04-10 09:14] LABS: Absolute Lymphocyte Count 2.64 X10^3/uL (0.83-4.51); Absolute Neutrophil Count 3.6 X10^3/uL (2.0-7.7); Lymphocyte # 2.64 X10^3/ul (0.83-4.51); Neutrophil # 3.62 X10^3/uL (2.7-7.7); Platelet Estimate SLT DEC (ADEQ); Red Cell Morphology NORM C+C NORMAL (NORM C&C)
[2022-04-13 13:37] LABS: Pathologist Review Reviewed
== END | disposition home or self-care (01) ==
LOC: LAB 08:15
PROVIDERS: PCP Family Medicine; Referring Provider Surgery; Visit Provider Surgery
DX: D50.9 Iron deficiency anemia, unspecified (principal)
CPT/HCPCS: 36415; 85025

== ENCOUNTER 2023-02-06 18:22 | Emergency (ER) | payer MEDICARE, SELFPAY ==
[2023-02-06 18:23] VITALS: BP 140/64; PULSE 71; RESP 18; TEMP 36.7; O2SAT 96; BMI 23.6
--- NOTE | 2023-02-06 18:43 | EX.ED.DYSGE1 ---
HPI History of Present Illness Chief Complaint: Foreign Body Informant: patient Narrative Narrative: Accidentally got 1 mayte of a trouble hook on a double hooked Luer through the volar lateral surface of his left thumb. Tetanus is unknown. No numbness tingling or weakness. No other injury. [facility] Medical History Arthritis BPH (benign prostatic hyperplasia) Cardiology follow-up encounter Diabetes Dietary restriction Family history of malignant neoplasm of colon in father High cholesterol History of irregular heartbeat History of stress test HTN (hypertension) Leg cramps Non-smoker Personal history of colonic polyps Shortness of breath on exertion Syncope Wears glasses Wears hearing aid Home Medications metformin 500 mg tablet 500 mg PO BID 04/04/20 [History Last Taken Unknown] rosuvastatin 5 mg tablet 5 mg PO DAILY 04/04/20 [History Last Taken Unknown] omega-3 fatty acids-fish oil 300 mg-1,000 mg capsule 1 ea PO DAILY 04/23/20 [History Last Taken Unknown] vitamin B complex 1 ea PO DAILY 04/23/20 [History Last Taken Unknown] cholecalciferol (vitamin D3) 25 mcg (1,000 unit) tablet 2,000 unit PO DAILY 06/19/21 [History Last Taken Unknown] tamsulosin 0.4 mg capsule 0.4 mg PO QHS 06/19/21 [History Last Taken Unknown] losartan 25 mg tablet 50 mg PO DAILY 02/10/22 [History Last Taken 03/10/22] cephalexin 500 mg capsule 500 mg PO Q6 #20 CAPSULES 02/06/23 [Rx Last Taken Unknown] Allergy/AdvReac Type Severity Reaction Status Date / Time aspirin Allergy Mild Unknown Verified 02/06/23 18:25 pravastatin Allergy angioedema Verified 02/06/23 18:25 atorvastatin [From Lipitor] AdvReac mental Verified 02/06/23 18:25 status change lovastatin AdvReac muscle Verified 02/06/23 18:25 aches Family History Father Colon cancer Brother Diabetes Sister Diabetes Surgical History Hx of colonoscopy with polypectomy Hx of detached retina repair Hx of inguinal hernia repair Hx of thumb surgery Hx of tonsillectomy Social History Smoking Status: Never smoker alcohol intake: never substance use type: does not use ROS ROS ED Constitutional Constitutional ED: Denies fever(s) Gastrointestinal Gastrointestinal: Denies nausea or vomiting Integumentary Reports Abrasions Neurologic Neurologic: Denies paresthesias or weakness Hematologic/Lymphatic Hematologic/Lymphatic: Denies easy bleeding or easy bruising EXAM Physical Exam Narrative Exam Narrative: Patient awake alert no acute distress. HEENT shows no trauma Lungs are clear bilaterally and saturations are normal at 96% on room air showing no hypoxia. Extremity shows a single mayte of a treble hook through the volar lateral aspect of his left thumb overlying the proximal phalanx. Normal capillary refill and sensation distally. No indication of involvement of the tendon. Const Vital Signs: 02/06/23 18:23 Temperature 98.0 F Temperature Source Temporal Pulse Rate 71 Respiratory Rate 18 Blood Pressure 140/64 H Blood Pressure Mean 89 Pulse Ox 96 Oxygen Delivery Method Room Air MDM MDM MDM Narrative Medical decision making narrative: Procedure: Removal of fishhook from left thumb: We cleansed the area with alcohol swabs and frame cleaner. I then anesthetized it with 1/2 cc of 1% lidocaine without epinephrine locally. He tolerated this well. Then cleaned it further. We cleaned off the entire hook. I removed the rest of the fishing Luer from the remaining hook stuck in the patient. I then cut each mayte off the hook and then cut the mayte that was in him off of the main section of the treble hook. We then attempted to back out the hook but it would not move. I then pulled it back and pressed it through the skin. It was somewhat shallow. It easily went through the skin and was removed. It had been fully scrubbed cleaned prior to this. He tolerated this very well. No notable bleeding. Good range of motion afterwards. Good capillary refill and sensation. I will place him on several days of antibiotics. We discussed reasons to return and signs of infection. Discharge Plan Triage Chief Complaint: Foreign Body ED Provider: Wesley Alford Dx/Rx/DC Orders Clinical Impression: [place] injury to finger, Hx of retained foreign body fully removed Instructions: ED Foreign Body Soft Tissue Prescriptions: New cephalexin [cephalexin] 500 mg capsule 500 mg PO Q6 Qty: 20 0RF No Action metformin 500 mg tablet 500 mg PO BID rosuvastatin 5 mg tablet 5 mg PO DAILY tamsulosin 0.4 mg capsule 0.4 mg PO QHS losartan 25 mg tablet 50 mg PO DAILY vitamin B complex 1 EACH capsule 1 ea PO DAILY omega-3 fatty acids-fish oil 1 EACH capsule 1 ea PO DAILY cholecalciferol (vitamin D3) 25 mcg (1,000 unit) tablet 2,000 unit PO DAILY Primary Care Provider: Ian Norman Referrals: Ian Norman MD [[facility]] - 3-5 Days if not improving Disposition Disposition: Home, Self Care
[2023-02-06] MEDS: Lidocaine 1% (20 ml mdv) 20 ML Vial INFILT (19:11)
[2023-02-06] MEDS: Diphth,Pertuss(Acell),Tet Vac 0.5 ML Vial IM (19:12)
[2023-02-06] MEDS: Cephalexin 250 MG Capsule 500 MG PO (19:46)
[2023-02-06 19:54] VITALS: BP 134/78; PULSE 69; RESP 18; O2SAT 100
== END 2023-02-06 20:28 | disposition home or self-care (01) ==
PROVIDERS: Emergency Provider Emergency Medicine; PCP Family Medicine; Visit Provider Emergency Medicine
DX: S61.042A Puncture wound with foreign body of left thumb without damage to nail, initial encounter (principal); E11.9 Type 2 diabetes mellitus without complications; X58.XXXA Exposure to other specified factors, initial encounter; I10 Essential (primary) hypertension; E78.00 Pure hypercholesterolemia, unspecified; Z79.84 Long term (current) use of oral hypoglycemic drugs; Z79.899 Other long term (current) drug therapy; Z23 Encounter for immunization
CPT/HCPCS: 10120; 90471; 90715; 99283

== ENCOUNTER 2023-07-26 17:17 | Emergency (ER) | payer MEDICARE, SELFPAY ==
[2023-07-26 17:18] VITALS: BP 120/78; PULSE 80; RESP 22; TEMP 36.7; O2SAT 97; BMI 23.3
--- NOTE | 2023-07-26 17:36 | EDS_ITS ---
HPI History of Present Illness Chief Complaint: Dizziness Informant: patient Onset/Context/Timing Onset: Today and Hours Context: Gradual Onset Timing: Intermittent Current Severity: Gone Maximum Severity: Mild Narrative Narrative: 82-year-old Lenny male status post recent open heart surgery for aortic valve replacement and aortic aneurysm repair. That was at the [facility] on 07 08. He has been doing well has been home for several days. And today was feeling fine he felt a little lightheaded and dizzy became nauseated and vomited once and now is feeling better. He is on Eliquis. He denies any headache. No chest pain. No abdominal pain. No dysuria. He has not been off balance. He denies any headache. Prior similar symptoms: No Recent Illness/Hospitalization: Yes PFSH [facility] Medical History Arthritis BPH (benign prostatic hyperplasia) Cardiology follow-up encounter Diabetes Dietary restriction Family history of malignant neoplasm of colon in father High cholesterol History of irregular heartbeat History of stress test HTN (hypertension) Leg cramps Non-smoker Personal history of colonic polyps Shortness of breath on exertion Syncope Wears glasses Wears hearing aid Home Medications metformin 500 mg tablet 500 mg PO BID 04/04/20 [History Last Taken 07/26/23] rosuvastatin 5 mg tablet 10 mg PO DAILY 04/04/20 [History Last Taken 07/26/23] omega-3 fatty acids-fish oil 300 mg-1,000 mg capsule 1 ea PO DAILY 04/23/20 [History Last Taken 07/26/23] vitamin B complex 1 ea PO DAILY 04/23/20 [History Last Taken 07/26/23] cholecalciferol (vitamin D3) 25 mcg (1,000 unit) tablet 2,000 unit PO DAILY 06/19/21 [History Last Taken 07/26/23] tamsulosin 0.4 mg capsule 0.4 mg PO QHS 06/19/21 [History Last Taken 07/25/23] losartan 25 mg tablet 50 mg PO DAILY 02/10/22 [History Last Taken 07/26/23] amiodarone 200 mg tablet 200 mg PO DAILY 07/26/23 [History Last Taken 07/26/23] artificial tears with lanolin eye ointment (Ultra Fresh PM eye ointment) 1 applic EACH EYE DAILY 07/26/23 [History Last Taken Unknown] clopidogrel 75 mg tablet 75 mg PO DAILY 07/26/23 [History Last Taken 07/26/23] metoprolol succinate 25 mg tablet,extended release 24 hr 25 mg PO DAILY 07/26/23 [History Last Taken 07/26/23] pantoprazole 20 mg tablet,delayed release 20 mg PO DAILY 07/26/23 [History Last Taken 07/26/23] Allergy/AdvReac Type Severity Reaction Status Date / Time aspirin Allergy Mild Unknown Verified 07/26/23 18:11 pravastatin Allergy angioedema Verified 07/26/23 18:11 atorvastatin [From Lipitor] AdvReac mental Verified 07/26/23 18:11 status change lovastatin AdvReac muscle Verified 07/26/23 18:11 aches Family History Father Colon cancer Brother Diabetes Sister Diabetes Surgical History Hx of colonoscopy with polypectomy Hx of detached retina repair Hx of inguinal hernia repair Hx of thumb surgery Hx of tonsillectomy Social History Smoking Status: Never smoker alcohol intake: never substance use type: does not use ROS ROS ED ROS Narrative Lightheaded and dizzy. Resolved. Nausea and vomiting x 1 today. Review of Systems ROS Unobtainable: Denies due to encephalopathy Constitutional Constitutional ED: Denies chills or fever(s) Eyes Eyes: Denies blurry vision ENT ENT ED: Denies ear pain Cardiovascular Cardiovascular: Denies chest pain Respiratory/Chest Respiratory/Chest: Denies cough or dyspnea Gastrointestinal Gastrointestinal: Reports nausea and vomiting; Denies abdominal pain, constipation, diarrhea or melena Genitourinary Genitourinary ED: Denies dysuria or hematuria Musculoskeletal Musculoskeletal: Denies arthralgias Integumentary Denies abscess Neurologic Neurologic: Denies headache(s) or paresthesias Psychiatric Psychiatric: Denies anxiety, depression or suicidal ideation Endocrine Endocrinology: Denies cold intolerance Hematologic/Lymphatic Hematologic/Lymphatic: Reports none Allergic/Immunologic Allergic/Immunologic ED: Denies mouth swelling, tongue swelling or urticaria EXAM Physical Exam Narrative Exam Narrative: Well-appearing 82-year-old Lenny male. Vital signs stable afebrile. Pulse ox 97% on room air. He is sitting upright in bed. States he feels much better now. at bedside. Currently has no complaints. H EENT exam unremarkable. Bilateral hearing aids. TMs are normal bilaterally. No wax. Pupils round reactive light. Extra motions are intact. No facial droop. Normal speech. No trauma to his face or scalp. Neck nontender. Lungs clear to auscultation bilaterally. Heart regular rhythm rate about 80 no murmur. Chest wall well- healed sternotomy incision. Dry clean. Abdomen is soft and nontender. Normal bowel sounds no peritoneal signs. No distention. Moving all 4 extremities. 5 out of 5 newspaper subscription solicitor strength. Dorsi plantarflexion intact. Calves are nontender without edema. Back is unremarkable. Neurologically is awake. He is alert. He is answer questions following commands. He has no focal motor deficits. Hallpike's negative. Currently symptom-free. Const Vital Signs: 07/26/23 17:18 07/26/23 17:17 07/26/23 19:00 Temperature 98.0 F 98.0 F Temperature Source Oral Temporal Pulse Rate 80 99 Respiratory Rate 22 H 20 H Respiratory Effort Normal Non-Labored Respiratory Pattern Normal Blood Pressure 120/78 91/68 Blood Pressure Mean 92 75 Pulse Ox 97 96 Oxygen Delivery Method Room Air Room Air Positive well nourished and well developed; Negative for obese, cachectic, contractures or unkempt General Appearance ED: well developed and NAD; Negative for unkempt, cachectic, contractures, cyanotic, diaphoretic or pallor Nutritional Appearance: Negative for cachectic or obese HEENT Reports moist mucous membranes; Denies dry mucous membranes Negative for trauma or tenderness Mouth ED: No dry mucous membranes Mouth: No dry mucous membranes Eyes PERRL and EOMs intact bilaterally General Eye ED: Negative for pale conjunctiva or scleral icterus Neck no lymphadenopathy, supple and no JVD General: Negative for tenderness Lymph Lymphatic: Negative for other Chest Wall inspection of chest normal and palpation of chest normal Chest: Negative for other Resp normal respiratory effort and clear to auscultation bilaterally Effort and Inspection: Negative for retractions Auscultation: Negative for rales, rhonchi or wheezes Cardio regular rate, regular rhythm, S1 normal heart sound, S2 normal heart sound and no murmurs Rate: Negative for bradycardia or tachycardic Rhythm: Negative for abnormal rhythm GI normal to inspection, nondistended, normoactive bowel sounds, non-tender, non- distended and no masses Inspection: Negative for abdominal distention Auscultation: normoactive bowel sounds Palpation: soft; Negative for tender or guarding Back/Spine no CVA tenderness General Back: Negative for CVA tenderness Cervical Spine: Negative for cervical spine tenderness Thoracic Spine / Upper Back: Negative for thoracic spinal tenderness Lumbar Spine / Lower Back: Negative for lumbar spinal tenderness Extremity normal to inspection General Extremety ED: Negative for edema or tenderness General Extremity: Negative for edema Neuro oriented x3 and CN's II-XII intact bilaterally Neuro Narrative: Negative Hallpike. NIH 0. Normal strength. Normal fingertip to nose. Sensorium / Orientation: alert; Negative for orientation impaired, lethargic or stuporous Motor Exam: strength 5/5 throughout Psych mental status grossly normal Appearance: Negative for unkempt Attitude: No agitated Mood & Affect: Negative for depressed, anxious or tearful Skin no rashes or lesions noted, no wounds and skin turgor normal General Skin Exam: elasticity normal; Negative for jaundice or pallor Lesions: No lesion noted Rashes: No rashes noted Trauma: Negative for abrasion Wounds: Negative for wounds noted MDM MDM MDM Narrative Medical decision making narrative: 82-year-old [facility] male 2 to 3 weeks ago underwent open heart surgery for aortic aneurysm repair and aortic valve replaced. He is on the blood thinner Eliquis. Today had an episode at home of lightheadedness with nausea and vomiting x 1. Currently he is feeling much better. He denies any headache no chest pain or shortness of breath no abdominal pain. No dysuria. Screening labs are being obtained. Repeat exam patient is doing well at 7:15 PM. Blood pressure is 91/60. He and his state his blood pressure was low at the [facility]. He does have a history of A-fib and had post his open heart surgery. He ambulated without any difficulty. Were given IV fluid bolus and reassessing. Patient doing well at 9:15 PM. Current blood pressures around 100 systolic. showed me several days of blood pressure readings they have been taking and they have been running between 90 and 120 systolic. He had new medications added when he had his recent surgery he is on metoprolol and losartan along with amiodarone and 1 or any of those may be dropping his blood pressure. They can do blood pressure readings at home. I will have them hold his losartan for now. They are following up with his cardiothoracic surgeon on Wednesday and they can talk to them about possibly adjusting his medications if his blood pressures are running low. Patient ambulated in the hallway and did quite well earlier. Lab Data Attestation: I reviewed the patient's lab results. Lab results narrative: CBC shows a white count of 10. H&H 9.4 and 29 which is his baseline anemia. Platelets 173. Lecture lites show sodium 137 gap of 5 BUN and creatinine 19 and 1. Glucose 125. Liver enzymes are normal. Labs: Laboratory Results - last 24 hr 07/26/23 17:42 WBC 10.8 RBC 3.24 L Hgb 9.4 L Hct 29.7 L MCV 91.7 MCH 29.0 MCHC 31.6 L RDW Std Deviation 56.8 H RDW Coeff of Michael 16.8 H Plt Count 173 MPV 10.3 Neut % (Auto) Not Reportable Absolute Neuts (auto) 5.8 Absolute Lymphs (auto) 2.60 Total Counted 100 Neutrophils % (Manual) 52 Band Neutrophils % 2 Lymphocytes % (Manual) 24 Monocytes % (Manual) 16 H Eosinophils % (Manual) 3 Myelocytes % [address] Diff Path Review May foll Sodium 137 Potassium 4.1 Chloride 106 Carbon Dioxide 26.0 Anion Gap 5 BUN 19 H Creatinine 1.11 Estim Creat Clear Calc 54.65 Est GFR (MDRD) Af Amer 81 Est GFR (MDRD) Non-Af 67 BUN/Creatinine Ratio 17.1 Glucose 125 H Calcium 8.9 Total Bilirubin 0.40 AST 15 ALT 14 L Alkaline Phosphatase 87 Total Protein 7.7 Albumin 2.7 L Globulin 5.0 H Albumin/Globulin Ratio 0.5 L Radiography Chest X-Ray - ED: 1 View, Read by ED Physician, Read by Radiologist, Normal, Heart, Mediastinum, Bony Structures and Chronic Changes Diagnostic Testing: Clinical Impression(s) from Imaging Studies Chest X-Ray 07/26/23 17:50 IMPRESSION: Left lower lung atelectasis or infiltrate and small pleural effusion. Electronically Signed: Osito Pichardo MD at 18:21 EST , Chest x-ray, portable, single view interpreted by myself and the radiologist shows normal cardiac silhouette. Prior sternotomy. Right lung normal. Left lower lung either atelectasis and/or small pleural effusion. No infiltrate. Rhythm Strip Rhythm Strip: A-fib Rate: 101 Ectopy: None EKG Initial EKG: Attestation: I personally reviewed and interpreted this EKG as follows: Interpretation: Atrial Fibrillation Comments: Atrial fibrillation rate of 101. Left bundle branch block. Discharge Plan Triage Chief Complaint: Dizziness ED Provider: Sam Devine Dx/Rx/DC Orders Clinical Impression: Episodic lightheadedness, Acute hypotension, History of heart surgery Instructions: ED Low Blood Pressure, All Causes Prescriptions: No Action metformin 500 mg tablet 500 mg PO BID rosuvastatin 5 mg tablet 10 mg PO DAILY tamsulosin 0.4 mg capsule 0.4 mg PO QHS losartan 25 mg tablet 50 mg PO DAILY vitamin B complex 1 EACH capsule 1 ea PO DAILY omega-3 fatty acids-fish oil 1 EACH capsule 1 ea PO DAILY cholecalciferol (vitamin D3) 25 mcg (1,000 unit) tablet 2,000 unit PO DAILY amiodarone 200 mg tablet 200 mg PO DAILY clopidogrel 75 mg tablet 75 mg PO DAILY metoprolol succinate 25 mg tablet extended release 24 hr 25 mg PO DAILY pantoprazole 20 mg tablet,delayed release (DR/EC) 20 mg PO DAILY Ultra Fresh PM Ointment 1 applic EACH EYE DAILY Primary Care Provider: Ian Norman Referrals: Ian Norman MD [Primary Care Provider] - Activity Restrictions/Additional Instructions: Keep your scheduled appointment with your [facility] cardiothoracic surgeon. Make sure they are aware that your blood pressures have been running low they may want to alter some of your blood pressure medications. If your blood pressures running 110 or lower hold your losartan. Make sure you are drinking plenty of fluids. Be careful walking and getting up from a seated or lying position because your low blood pressure may make you lightheaded. Disposition Disposition: Home, Self Care
--- NOTE | 2023-07-26 17:36 | EKG12_ITS ---
Test Reason : DIZZINESS Blood Pressure : / mmHG Vent. Rate : 101 BPM Atrial Rate : 000 BPM P-R Int : 000 ms QRS Dur : 152 ms QT Int : 356 ms P-R-T Axes : 000 042 204 degrees QTc Int : 461 ms Atrial fibrillation with rapid ventricular response Left bundle branch block Abnormal ECG Confirmed by OJ COLON, DESIRAE ([id number]), food expeditor FRANCO ARREOLA ([id number]) on 08/03/2023 9:26:41 AM Referred By: DINA Confirmed By:DESIRAE MCWILLIAMS MD
--- NOTE | 2023-07-26 17:50 | RAD_ITS ---
STUDY: X-RAY CHEST REASON FOR EXAM: Male, 82 years old. Weakness TECHNIQUE: Single AP portable view of the chest. COMPARISON: None. FINDINGS: There are monitoring devices. There is mild left lower lung opacity with consolidation and small pleural effusion . Sternal cerclage wires are present from a prior sternotomy. There is valve replacement. Normal mediastinum and avila. Normal visualized pulmonary arteries. Normal visualized aortic arch and descending thoracic aorta. Normal visualized thoracic spine. Normal visualized ribs, clavicles, and shoulders. There is no demonstrated abnormality of the visualized soft tissue structures of the upper abdomen. RAD/Chest 1 View (Portable) IMPRESSION: Left lower lung atelectasis or infiltrate and small pleural effusion. Electronically Signed: Osito Pichardo MD at 18:21 EST ,
[2023-07-26 17:54] LABS: Hematocrit 29.7 % (40-54); Hemoglobin 9.4 g/dL (13.0-16.5); Mean Corp Hgb Conc 31.6 g/dL (32-36); Mean Corpuscular Volume 91.7 fL (80-94); Mean Platelet Vol. 10.3 fl (6.2-12.0); POSITIVE COUNT YES; POSITIVE DIFFERENTIAL YES; POSITIVE MORPHOLOGY YES; Platelet Count 173 K/mm3 (150-450); RBC Distribution Width CV 16.8 % (11.6-14.6); RBC Distribution Width SD 56.8 fl (35.1-43.9); Red Blood Count 3.24 M/mm3 (4.6-6.2); White Blood Count 10.8 K/mm3 (4.4-11.0)
[2023-07-26 18:06] LABS: ALB/GLOB Ratio 0.5 RATIO (0.9-2.4); AST(SGOT) 15 U/L (15-37); Alanine Aminotransfer ALT/SGPT 14 U/L (16-61); Albumin, Serum 2.7 g/dL (3.2-5.0); Alkaline Phosphatase 87 U/L (45-117); Anion Gap 5 (5-15); BUN 19 mg/dL (7-18); BUN/Creat Ratio 17.1 RATIO (10-20); Calcium,Total 8.9 mg/dL (8.5-10.1); Chloride 106 mmol/L (98-107); Creatinine, Serum 1.11 mg/dL (0.70-1.30); Differential Indicated MANUAL DIFF; EST Glomerular Filtration Rate 67 mL/min (>60); Est Glom Filt Rate - Afr Amer 81 mL/min (>60); Estimated Creatinine Clearance 54.65 ml/min; Glucose 125 mg/dL (74-106); Potassium 4.1 mmol/L (3.5-5.1); Protein, Total 7.7 g/dL (6.4-8.2); Sodium Level 137 mmol/L (136-145)
[2023-07-26 18:25] VITALS: O2SAT 98
[2023-07-26 18:29] LABS: Eosinophil 3 % (0-5); Lymphocyte 24 % (19-41); Monocyte 16 % (0-10); Myelocyte 3 % (0-0); Neutrophil-Band 2 % (0-5); Neutrophil-Segmented 52 % (47-70); Total Cells Counted 100 (MANUAL DIFF)
[2023-07-26 18:30] LABS: Absolute Neutrophil Count 5.8 X10^3/uL (2.0-7.7)
[2023-07-26 19:00] VITALS: BP 91/68; PULSE 99; RESP 20; TEMP 36.7; O2SAT 96
[2023-07-26] MEDS: 0.9% Normal Saline (500mL Bag) 500 ML 999 ML IV (19:10)
[2023-07-26 21:30] VITALS: BP 99/63; PULSE 95; RESP 20; O2SAT 96
[2023-07-27 01:57] LABS: Ovalocyte RARE; Platelet Estimate ADEQUATE (ADEQ); Red Cell Morphology N CHROM NORMAL (NORM C&C)
[2023-07-28 13:18] LABS: Pathologist Review Reviewed
== END 2023-07-26 21:32 | disposition home or self-care (01) ==
PROVIDERS: Emergency Provider Emergency Medicine; PCP Family Medicine; Visit Provider Emergency Medicine
DX: R42 Dizziness and giddiness (principal); E11.9 Type 2 diabetes mellitus without complications; I95.9 Hypotension, unspecified; E78.00 Pure hypercholesterolemia, unspecified; I10 Essential (primary) hypertension; Z79.84 Long term (current) use of oral hypoglycemic drugs; Z79.899 Other long term (current) drug therapy
CPT/HCPCS: 71045; 80053; 85025; 93005; 99284; J7030; A4216

== ENCOUNTER 2023-08-31 18:19 | Emergency (ER) | payer MEDICARE, SELFPAY ==
[2023-08-31 18:19] VITALS: BP 146/76; PULSE 63; RESP 16; TEMP 36.9; O2SAT 97; BMI 22.1
[2023-08-31 22:20] VITALS: BP 128/81; PULSE 78; RESP 14; O2SAT 98
--- NOTE | 2023-08-31 22:31 | EDS_ITS ---
HPI History of Present Illness Chief Complaint: Edema Informant: patient and family Narrative Narrative: Patient presents with swelling around his upper lip and base of his nose. Patient states he woke up and was a little bit swollen. It stayed that way most of the day but is now gone. He never felt sick. He never had trouble breathing. No change in voice. Patient did have recent bypass surgery on 08 July. But he states he feels great and he has been cleared by his semiautomatic stitcher operator to do what ever he wants. He is not on an JACOB inhibitor. He brought in his med list. This is evidently current from just this past week. The only medicine that he is not on that is on the list is metoprolol because it has not arrived yet. 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 I note the patient is on r osuvastatin. [facility] Medical History Arthritis BPH (benign prostatic hyperplasia) Cardiology follow-up encounter Diabetes Dietary restriction Family history of malignant neoplasm of colon in father High cholesterol History of irregular heartbeat History of stress test HTN (hypertension) Leg cramps Non-smoker Personal history of colonic polyps Shortness of breath on exertion Syncope Wears glasses Wears hearing aid Home Medications metformin 500 mg tablet 500 mg PO BID 04/04/20 [History Last Taken 07/26/23] rosuvastatin 5 mg tablet 10 mg PO DAILY 04/04/20 [History Last Taken 07/26/23] omega-3 fatty acids-fish oil 300 mg-1,000 mg capsule 1 ea PO DAILY 04/23/20 [History Last Taken 07/26/23] vitamin B complex 1 ea PO DAILY 04/23/20 [History Last Taken 07/26/23] cholecalciferol (vitamin D3) 25 mcg (1,000 unit) tablet 2,000 unit PO DAILY 06/19/21 [History Last Taken 07/26/23] tamsulosin 0.4 mg capsule 0.4 mg PO QHS 06/19/21 [History Last Taken 07/25/23] losartan 25 mg tablet 50 mg PO DAILY 02/10/22 [History Last Taken 07/26/23] amiodarone 200 mg tablet 200 mg PO DAILY 07/26/23 [History Last Taken 07/26/23] artificial tears with lanolin eye ointment (Ultra Fresh PM eye ointment) 1 applic EACH EYE DAILY 07/26/23 [History Last Taken Unknown] clopidogrel 75 mg tablet 75 mg PO DAILY 07/26/23 [History Last Taken 07/26/23] metoprolol succinate 25 mg tablet,extended release 24 hr 25 mg PO DAILY 07/26/23 [History Last Taken 07/26/23] pantoprazole 20 mg tablet,delayed release 20 mg PO DAILY 07/26/23 [History Last Taken 07/26/23] Allergy/AdvReac Type Severity Reaction Status Date / Time aspirin Allergy Mild Unknown Verified 07/26/23 18:11 pravastatin Allergy angioedema Verified 07/26/23 18:11 atorvastatin [From Lipitor] AdvReac mental Verified 07/26/23 18:11 status change lovastatin AdvReac muscle Verified 07/26/23 18:11 aches Family History Father Colon cancer Brother Diabetes Sister Diabetes Surgical History Hx of CABG Hx of colonoscopy with polypectomy Hx of detached retina repair Hx of inguinal hernia repair Hx of thumb surgery Hx of tonsillectomy Social History Smoking Status: Never smoker alcohol intake: never substance use type: does not use ROS ROS ED Constitutional Constitutional ED: Denies chills or fever(s) Eyes Eyes: Denies blurry vision, change in vision or diplopia ENT ENT ED: Reports other Details: See history of present illness ; Denies rhinorrhea or sore throat Cardiovascular Cardiovascular: Denies chest pain, palpitations or racing heartbeat Respiratory/Chest Respiratory/Chest: Denies cough or dyspnea Gastrointestinal Gastrointestinal: Denies abdominal pain, nausea or vomiting Musculoskeletal Musculoskeletal: Denies myalgias or neck pain Integumentary Reports other Details: Patient had swelling but no rash. But he does note that he has had dryness around his face ever since he started on all his meds. But this is unchanged. Neurologic Neurologic: Denies headache(s), paresthesias or weakness Endocrine Endocrinology: Denies polydipsia or polyuria Hematologic/Lymphatic Hematologic/Lymphatic: Reports easy bleeding and easy bruising Allergic/Immunologic Allergic/Immunologic ED: Reports mouth swelling and other Details: See history of present illness ; Denies tongue swelling or urticaria EXAM Physical Exam Narrative Exam Narrative: General: Patient awake alert no acute distress sits comfortably in bed and is nontoxic. HEENT: There is some dryness of the skin diffusely around the nose and the cheeks. But no sign of infection. There is no intranasal swelling. There is a little bit of dryness. No infection. The upper lip is not swollen. The upper lip is everted and there is no swelling or redness inside. There is no dental tenderness. Tongue posterior pharynx is normal. Speech is normal. Handle secretions normally. Neck no JVD or lymphadenopathy noted. Chest is clear to auscultation bilaterally and saturations are normal 98% on room air showing no hypoxia. Heart is regular. He has a very well-healed median sternotomy that is nontender or swollen. Abdomen soft nontender. Extremities show no rash or swelling. Const Vital Signs: 08/31/23 18:19 08/31/23 22:17 08/31/23 22:20 Temperature 98.4 F Temperature Source Temporal Pulse Rate 63 78 Respiratory Rate 16 14 Respiratory Effort Normal Non-Labored Respiratory Pattern Normal Blood Pressure 146/76 H 128/81 H Blood Pressure Mean 99 96 Pulse Ox 97 98 Oxygen Delivery Method Room Air Room Air MDM MDM MDM Narrative Medical decision making narrative: Patient's symptoms are resolved now. His vitals and exam are normal. He is not on an JACOB inhibitor. And I have reviewed his med list that is accurate per him and the family. But he is on rosuvastatin when his chart lists angioedema to pravastatin. I recommend that he hold rosuvastatin now. He should talk to his semiautomatic stitcher operator. If they want he may be able to restart this in a few days to see if symptoms change. I also told him to get some Benadryl to have at home. If he has further symptoms or any trouble breathing he is welcome to return at any time. Discharge Plan Triage Chief Complaint: Edema ED Provider: Wesley Alford Dx/Rx/DC Orders Clinical Impression: History of angioedema, Allergy to statin medication Instructions: ED Angioedema Prescriptions: No Action metformin 500 mg tablet 500 mg PO BID rosuvastatin 5 mg tablet 10 mg PO DAILY tamsulosin 0.4 mg capsule 0.4 mg PO QHS losartan 25 mg tablet 50 mg PO DAILY vitamin B complex 1 EACH capsule 1 ea PO DAILY omega-3 fatty acids-fish oil 1 EACH capsule 1 ea PO DAILY cholecalciferol (vitamin D3) 25 mcg (1,000 unit) tablet 2,000 unit PO DAILY amiodarone 200 mg tablet 200 mg PO DAILY clopidogrel 75 mg tablet 75 mg PO DAILY metoprolol succinate 25 mg tablet extended release 24 hr 25 mg PO DAILY pantoprazole 20 mg tablet,delayed release (DR/EC) 20 mg PO DAILY Ultra Fresh PM Ointment 1 applic EACH EYE DAILY Primary Care Provider: Ian Norman Referrals: Ian Norman MD [Primary Care Provider] - 1-2 Days if not improving
[2023-08-31 22:42] VITALS: RESP 16
== END 2023-08-31 22:43 | disposition home or self-care (01) ==
LOC: ED 22:32
PROVIDERS: Emergency Provider Emergency Medicine; PCP Family Medicine; Visit Provider Emergency Medicine
DX: T78.3XXA Angioneurotic edema, initial encounter (principal); E11.9 Type 2 diabetes mellitus without complications; X58.XXXA Exposure to other specified factors, initial encounter; Z88.8 Allergy status to other drugs, medicaments and biological substances; I10 Essential (primary) hypertension; E78.00 Pure hypercholesterolemia, unspecified; Z95.1 Presence of aortocoronary bypass graft; Z79.02 Long term (current) use of antithrombotics/antiplatelets; Z79.84 Long term (current) use of oral hypoglycemic drugs; Z79.899 Other long term (current) drug therapy
CPT/HCPCS: 99282